=== PATIENT | male | born 1960 | race Caucasian/White ===

== ENCOUNTER 2016-08-13 13:42 | Inpatient (IN) ==
[2016-08-14] MEDS ORDERED: TYLENOL PO PRN (12:31)
[2016-08-14] MEDS ORDERED: ZOFRAN IV PRN (12:31)
[2016-08-14] MEDS ORDERED: MAALOX PLUS LIQUID PO PRN (12:31)
[2016-08-14] MEDS ORDERED: SENOKOT PO PRN (12:31)
[2016-08-14] MEDS ORDERED: M.V.I.-12 10 ML, FOLIC ACID 1 MG, MAGNESIUM SULFATE 1 GM, THIAMINE 100 MG in NS 1,000 ML IV ONE (12:31)
[2016-08-14] MEDS ORDERED: TUBERSOL ID ONE (12:31)
[2016-08-14] MEDS ORDERED: MOTRIN PO PRN (12:31)
[2016-08-14] MEDS ORDERED: BENTYL PO PRN (12:31)
[2016-08-14] MEDS ORDERED: PHENERGAN PO PRN (12:31)
[2016-08-14] MEDS ORDERED: ROBAXIN PO PRN (12:31)
[2016-08-14] MEDS ORDERED: DULCOLAX PR PRN (12:31)
[2016-08-14] MEDS ORDERED: IMODIUM PO PRN (12:31)
[2016-08-14] MEDS ORDERED: SALINE LOCK IV FLUID XX ONE (12:31)
[2016-08-14] MEDS ORDERED: ATIVAN ONE (12:34)
[2016-08-14] MEDS ORDERED: ATIVAN IV ONE (12:41)
[2016-08-14] MEDS: LIBRIUM PO SCH ×3 (12:43→18:10)
[2016-08-14 12:54] LABS: MANUAL DIFF NEEDED? NO
[2016-08-14 12:56] LABS: BASO% 0.5 % (0.0-0.8); EOS# 0.09 X1000 (0.0-0.7); EOS% 1.4 % (0.0-10.0); IMM GRAN# 0.02 X1000 (0.0-0.04); IMM GRAN% 0.3 % (0.0-0.5); LYMPH# 1.04 X1000 (1.2-3.4); MCH 28.1 PG (27-31); MCHC 34.2 g/dL (33-37); MCV 82.1 FL (81-99); MONO# 0.47 X1000 (0.11-0.59); MONO% 7.2 % (1.7-9.3); MPV 8.6 FL (7.4-10.4); NEUT% 74.6 % (42.2-75.2); PLT 125 X1000 (130-400); RBC 4.63 XMIL (4.7-6.1)
[2016-08-14 13:11] LABS: INR 0.89 (0.86-1.15); PROTIME 12.4 Seconds (12.1-15.5); PTT PL 23.3 Seconds (22.6-43.9)
[2016-08-14] MEDS: NICODERM PATCH TD SCH (13:12)
[2016-08-14 13:22] LABS: AGAP 21; ALBUMIN 4.3 g/dL (3.5-5.0); ALKALINE PHOSPHATASE 68 U/L (32-122); AMYLASE 82 U/L (20-200); BUN 6 mg/dL (8-22); CALCIUM 8.6 mg/dL (8.8-10.2); CHLORIDE 90 mmol/L (98-107); COSMO 269; GOT 94 U/L (10-34); GPT 41 U/L (10-44); LIPASE 47 U/L (13-60); SODIUM 135 mmol/L (136-145); TCO2 24 mmol/L (25-35)
[2016-08-14 13:36] LABS: URINE SOURCE VOIDED
[2016-08-14 13:48] LABS: BILIRUBIN URINE NEGATIVE (NEGATIVE); BLOOD URINE NEGATIVE (NEGATIVE); CLARITY CLEAR (CLEAR); COLOR YELLOW; GLUCOSE URINE NEGATIVE (NEGATIVE); LEUKOCYTES URINE TRACE (NEGATIVE); NITRITE URINE NEGATIVE (NEGATIVE); PROTEIN URINE TRACE mg/dL (NEGATIVE); UR AMPHETAMINES QUAL NONE DETECTED (NONE DETECT); UR BARBITUATES QUAL NONE DETECTED (NONE DETECT); UR BENZODIAZEPIN QUAL PRESUMPTIVE POSITIVE (NONE DETECT); UR CANNABINOIDS QUAL NONE DETECTED (NONE DETECT); UR COCAINE QUAL NONE DETECTED (NONE DETECT); UR MDMA QUAL NONE DETECTED (NONE DETECT); UR METHADONE QUAL NONE DETECTED (NONE DETECT); UR METHAMPHETAMINE QUAL NONE DETECTED (NONE DETECT); UR OPIATES QUAL NONE DETECTED (NONE DETECT); UR OXYCODONE QUAL NONE DETECTED (NONE DETECT); UR PCP QUAL NONE DETECTED (NONE DETECT); UR TCA QUAL NONE DETECTED (NONE DETECT); URINE MICROSCOPIC NEEDED? YES; UROBILINOGEN URINE NORMAL
[2016-08-14 13:49] LABS: URINE EPITHELIAL CELLS <10 /HPF (<10); URINE WBC <10 /HPF (<10)
[2016-08-14] MEDS: ATIVAN PO PRN ×2 (15:46→21:57)
[2016-08-14] MEDS ORDERED: LIBRIUM PO ONE (18:23)
[2016-08-14] MEDS: NEURONTIN PO SCH (21:57)
[2016-08-14] MEDS: DESYREL PO SCH (23:33)
[2016-08-15] MEDS: LIBRIUM PO SCH ×4 (00:53→18:58)
[2016-08-15] MEDS: ATIVAN PO PRN ×3 (08:27→22:02)
[2016-08-15] MEDS: VITAMIN B-1 PO SCH (08:27)
[2016-08-15] MEDS: ZOLOFT PO SCH (08:27)
[2016-08-15] MEDS: FOLIC ACID PO SCH (08:27)
[2016-08-15] MEDS: THERA M PLUS PO SCH (08:27)
[2016-08-15] MEDS: NICODERM PATCH TD SCH (08:28)
[2016-08-15] MEDS ORDERED: NICODERM PATCH TD SCH (09:00)
--- NOTE | 2016-08-15 15:39 | PROGRESS NOTE ---
DATE: 08/15/2016 SUBJECTIVE: The patient notes that he is still jittery, nervous, anxious. He still complains of having continuous multiple unending panic attacks, for which he is certain that Klonopin would fix. He denies any current chest pain, palpitations. Denies any skin crawling. Denies any paresthesias. Denies any headaches or blurred vision. Denies any focalized weakness. Does note that he has some myalgias and occasional sweating, but denies nausea, vomiting, dysuria, or frequency. Denies any other GI or issues. OBJECTIVE: Vital Signs: His vital signs were reviewed. He is afebrile. Pulse is 88 to 94, respiratory 18 to 20, saturation 98% on room air. General: The patient is awake, alert. He is currently in no respiratory distress. He is walking about in the hospital room talking with his friend who is in the room. HEENT: Normocephalic, atraumatic. Neck: Supple. Cardiovascular: Regular rate. Chest: Relatively clear. Abdomen: Soft, nondistended, nontender. Extremities: Moves all extremities. Neurologic: No changes. ASSESSMENT: 1. Nausea and vomiting. 2. Abdominal pain. 3. Tremors. 4. Paresthesias, improved. 5. Myalgias, improving. 6. Alcohol abuse withdrawal. Continue stabilization will Librium. 7. Chronic panic attacks. 8. Chronic anxiety and depression. 9. Chronic benzodiazepine dependence. PLAN: We will continue the patient on a Librium taper. Ativan p.r.n. as needed. Discussed with the patient that he does not require Klonopin and that he will not be in withdrawal from Klonopin physically as he is currently on Librium; however, he certainly can be mentally withdrawing from Klonopin. TIME SPENT: There was 35 minutes that was spent in discussion with the patient regarding mental and physical dependence, addiction, regarding weaning off of benzodiazepines given his strong history of alcoholism. I discussed with the patient that he needs to stop smoking as well. Further orders as needed. He currently is in minimal alcohol withdrawal. cc: Peter Braxton MD
[2016-08-15] MEDS: DESYREL PO SCH (22:02)
[2016-08-15] MEDS: NEURONTIN PO SCH (22:02)
[2016-08-16] MEDS: LIBRIUM PO SCH ×3 (00:52→12:54)
[2016-08-16] MEDS: ZOLOFT PO SCH (08:08)
[2016-08-16] MEDS: VITAMIN B-1 PO SCH (08:08)
[2016-08-16] MEDS: NICODERM PATCH TD SCH ×2 (08:08→08:12)
[2016-08-16] MEDS: THERA M PLUS PO SCH (08:08)
[2016-08-16] MEDS: FOLIC ACID PO SCH (08:08)
[2016-08-16] MEDS: ATIVAN PO PRN ×2 (09:02→15:05)
[2016-08-16 12:45] VITALS: BP 149/95
--- NOTE | 2016-08-16 19:06 | DISCHARGE SUMMARY ---
ADMISSION DATE: 08/14/2016 DISCHARGE DATE: 08/16/2016 DISCHARGE DIAGNOSES: 1. Alcohol abuse withdrawal and stabilization. 2. Nausea, vomiting resolved. 3. Tremors resolved. 4. Myalgias resolved. 5. Paresthesias resolved. 6. Tremulousness improved. 7. Chronic anxiety and depression. 8. Chronic benzodiazepine dependence. CONSULTATIONS: None. PROCEDURES: None. BRIEF HOSPITAL COURSE: The patient is a 56-year-old male who presented to [facility] as noted in the HPI. Treated in usual fashion. Placed on high-dose Librium taper. On discharge he was awake, alert. His shaky, jitteriness actually was improved compared to yesterday's exam. The patient states that he really wants to go home and he does not desire to stay in the hospital any longer. Discussed with him that since he is awake, alert and oriented we certainly will comply. DISPOSITION: The patient will be discharged home. Discussed with him that he needs to avoid all persons, places, situations which he has been using and abusing in the past. Again, discussed with patient the perils of mixing benzodiazepines i.e. Librium and Klonopin. Certainly expect the patient is going to take his Klonopin when he gets home. Discussed with him that this is to some degree similar to alcohol and that he certainly needs to avoid it. We will do a rapid Librium taper as I fully expect him to take it with his Librium. Offered patient Vivitrol. Patient declined. Offered him Campral versus naltrexone pills. He declined these as well. TIME SPENT: 45 minutes was spent in discharge planning and instructions. cc: Peter Braxton MD
--- NOTE | 2016-09-19 17:41 | HISTORY AND PHYSICAL ---
CHIEF COMPLAINT: Nausea, vomiting. PRESENT ILLNESS: The patient is a 56-year-old male who presented to the [facility] secondary to nausea, vomiting, abdominal pain. States he has been drinking alcohol has been trying to stop . His withdrawal symptoms become too severe and he has to start back. Notes it has been a couple days since he has drank. He is having jittery, nervous and feels as though his withdrawal symptoms are coming on. SOCIAL HISTORY: Patient is , lives at home in [place]. SUBSTANCE ABUSE HISTORY: Patient notes he began drinking alcohol around age 16. Started with beer. Currently drinking up to 30 beers a day. He does not remember the last day he did not drink. Does note that he has gone into DTs when he stopped abruptly in the past. Denies smoking opiates or any other illicit substances. PAST MEDICAL HISTORY: History of anxiety, depression. He has been in alcohol treatment facility in 2014 for 4 days as well as 2016 for 4 days. MEDICATIONS: Zoloft 100, Klonopin 0.5 mg 3 times daily, trazodone 100 at bedtime. ALLERGIES: No known drug allergies. REVIEW OF SYSTEMS: CIWA score is 27 secondary to nausea, vomiting, abdominal pain, frequent tremors, frequent dry heaves, sweating, notes some visual disturbances. Denies any auditory disturbances. States is very anxious, nervous, unable to sit still. He is having a mild headache and he is disoriented to time, agitated. Denies any dysuria, frequency. Denies polyuria, polydipsia. Denies skin rashes, weight loss or weight gain. PHYSICAL EXAMINATION: VITAL SIGNS: Reviewed. GENERAL: Patient is awake, alert, oriented. He is in no respiratory distress. He is pleasant to talk with although he does have to be redirected to answer questions. HEENT: Normocephalic, atraumatic. TADEO. NECK: Supple. CV: Regular rate. CHEST: Relatively clear. ABDOMEN: Soft. EXTREMITIES: Moves all extremities. NEUROLOGIC: No focal neurologic changes. SKIN: Warm, dry, no rashes. LABS: Pending. ASSESSMENT: 1. Nausea, vomiting. 2. Abdominal pain. 3. Dry heaves. 4. Tremors. 5. Myalgias. 6. Auditory hallucinations. 7. Mild paresthesias. 8. Paroxysmal sweating. 9. Alcohol abuse withdrawal and stabilization. PLAN: Will admit patient to the hospital. Continue protocol. Place him on high-dose Librium. Further orders as needed. Will watch closely for withdrawal. cc: Peter Braxton MD
== END 2016-08-16 15:07 | disposition home or self-care (01) ==
LOC: P.DIRADM 08-14 10:27 → P.MEDSURG 08-14 10:37
PROVIDERS: ADMIT Family Medicine; ATTEND Family Medicine